=== PATIENT | female | born 1990 | race African-American/Black ===

== ENCOUNTER 2018-12-17 13:31 | Emergency (ER) | payer OTHER ==
[~2018-12-17] VITALS: Ht 160 cm; Wt 97.9 kg
[2018-12-17 13:34] VITALS: BP 124/80; PULSE 102; RESP 18; Ht 160 cm; Wt 97.9 kg
[2018-12-17] MEDS ORDERED: ACET-141 PO (14:54)
[2018-12-17] MEDS ORDERED: D-ME118S24 PO (14:54)
[2018-12-17] MEDS ORDERED: CEPH-443 PO (14:54)
[2018-12-17] MEDS ORDERED: CETI10CA PO (14:54)
[2018-12-17] MEDS ORDERED: HYDR28.334 TP (14:54)
--- NOTE | 2018-12-17 14:54 | ERD ---
ER Documentation Chief Complaint Chief Complaint right arm swelling since yesterday s/p insect bites ROS All systems reviewed and are negative except as per history of present illness. Medications Home Meds Active Scripts D-Methorphan Hb/P-Epd HCl/Bpm (Lvcghuubxn-Pwhzdelphtc-Kp Syr) 118 Ml Syrup, 5 ML PO Q4H PRN for COUGH for 10 Days, #1 BOTTLE Prov:RITA GIRARD DO 12/17/18 Cetirizine Hcl* (Zyrtec*) 10 Mg Capsule, 10 MG PO DAILY PRN for ITCHING, #30 TAB Prov:RITA GIRARD DO 12/17/18 Acetaminophen* (Acetaminophen*) 500 MG Extra Strength Tablet, 500 MG PO Q4H PRN for PAIN AND OR ELEVATED TEMP, #30 TAB Prov:RITA GIRARD DO 12/17/18 Hydrocortisone (Hydrocortisone Cr) 28.35 Gm Cr, 28.35 GM TP BID PRN for itch for 10 Days, #1 TUBE Prov:RITA GIRARD DO 12/17/18 Cephalexin* (Keflex*) 500 Mg Capsule, 500 MG PO TID for skin infection for 5 Days, #15 CAP Prov:RITA GIRARD DO 12/17/18 Physical Exam Vitals Vital Signs Date Temp Pulse Resp B/P (MAP) Pulse Ox O2 O2 Flow FiO2 Time Delivery Rate 12/17/18 97.8 102 18 124/80 98 13:34 (95) Physical Exam Const: No acute distress Head: Atraumatic Eyes: Normal Conjunctiva ENT: Normal External Ears, Nose and Mouth. Neck: Full range of motion. No meningismus. Resp: Clear to auscultation bilaterally Cardio: Regular rate and rhythm, no murmurs Abd: Soft, non tender, non distended. Normal bowel sounds Skin: No petechiae or rashes Back: No midline or flank tenderness Ext: No cyanosis, or edema Neur: Awake and alert Psych: Normal Mood and Affect Departure Diagnosis: Primary Impression: Cellulitis Site of cellulitis: extremity Site of cellulitis of extremity: upper extremity Laterality: right Qualified Codes: L03.113 - Cellulitis of right upper limb Additional Impression: Cough Condition: Fair Patient Instructions: Cellulitis, Preventing Common Respiratory Infections Additional Instructions: Call your primary care doctor TOMORROW for an appointment during the next 1-2 days.See the doctor sooner or return here if your condition worsens before your appointment time. RITA GIRARD DO Dec 17, 2018 14:54
== END 2018-12-17 15:25 | disposition home or self-care (01) ==
LOC: FTE 13:31
DX: L03.113 Cellulitis of right upper limb (principal); R05 Cough
CPT/HCPCS: 99283

== ENCOUNTER 2019-01-04 14:36 | Emergency (ER) | payer OTHER ==
[~2019-01-04] VITALS: Ht 160 cm; Wt 97.9 kg
[~2019-01-04 14:36] MED LIST: ACET-141 PO; CEPH-443 PO; CETI10CA PO; D-ME118S24 PO; HYDR28.334 TP
[2019-01-04 14:39] VITALS: BP 145/80; PULSE 104; RESP 16; Ht 160 cm; Wt 97.9 kg
--- NOTE | 2019-01-04 14:41 | EN ---
Date/Time of Note Date/Time of Note DATE: 01/04/19 TIME: 14:40 ER Progress Note [id number]-[id number]-old female with redness and swelling of right forearm left lower extremity after likely bug bite yesterday. No SIRS criteria. ED 2 appropriate for symptomatic treatment. GANESH PATRICIA MD Jan 04, 2019 14:41
--- NOTE | 2019-01-04 14:55 | ERD ---
ER Documentation Chief Complaint Chief Complaint multiple mosquito bites x1 day w/ itching/pain at sites HPI 28-year-old female presents with insect bite to the right forearm. She first no ticed it yesterday but today got larger more painful more red and more swollen. Benadryl but it did not really help. Said no lip or tongue swelling. ROS All systems reviewed and are negative except as per history of present illness. Medications Home Meds Active Scripts Cephalexin* (Keflex*) 500 Mg Capsule, 500 MG PO QID for 7 Days, CAP Prov:ISIDRO AMIN PA-C 01/04/19 D-Methorphan Hb/P-Epd HCl/Bpm (Uraeilveii-Qretczzqtuq-Ie Syr) 118 Ml Syrup, 5 ML PO Q4H PRN for COUGH for 10 Days, #1 BOTTLE Prov:RITA GIRARD DO 12/17/18 Cetirizine Hcl* (Zyrtec*) 10 Mg Capsule, 10 MG PO DAILY PRN for ITCHING, #30 TAB Prov:RITA GIRARD DO 12/17/18 Acetaminophen* (Acetaminophen*) 500 MG Extra Strength Tablet, 500 MG PO Q4H PRN for PAIN AND OR ELEVATED TEMP, #30 TAB Prov:RITA GIRARD DO 12/17/18 Hydrocortisone (Hydrocortisone Cr) 28.35 Gm Cr, 28.35 GM TP BID PRN for itch for 10 Days, #1 TUBE Prov:RITA GIRARD DO 12/17/18 Cephalexin* (Keflex*) 500 Mg Capsule, 500 MG PO TID for skin infection for 5 Days, #15 CAP Prov:RITA GIRARD DO 12/17/18 Allergies Allergies: Coded Allergies: morphine (Verified Allergy, Mild, 01/04/19) PMhx/Soc History of Surgery: Yes (appendix) Anesthesia Reaction: No Hx Psychiatric Problems: No Hx Alcohol Use: Yes (rarely) Hx Substance Use: Yes (marijuana) Hx Tobacco Use: No Smoking Status: Never smoker FmHx Family History: No diabetes Physical Exam Vitals Vital Signs Date Temp Pulse Resp B/P (MAP) Pulse Ox O2 O2 Flow FiO2 Time Delivery Rate 01/04/19 99.3 104 16 145/80 99 14:39 (101) Physical Exam Const: No acute distress Head: Atraumatic Eyes: Normal Conjunctiva ENT: Normal External Ears, Nose and Mouth. Neck: Full range of motion. No meningismus. Resp: Clear to auscultation bilaterally Cardio: Regular rate and rhythm, no murmurs Abd: Soft, non tender, non distended. Normal bowel sounds Skin: Right forearm has an area of erythema indurated skin warmth and tenderness to palpation approximately 4 cm in diameter, Results 24 hrs Current Medications Medications Dose Sig/Alonzo Start Time Status Last (Trade) Ordered Route PRN Stop Time Admin Dose Reason Admin 10 mg ONCE ONCE 01/04/19 Dexamethasone PO 15:00 (Decadron) 01/04/19 15:01 Procedures/MDM Patient has insect bite on right forearm. It is now red and swollen warm. I explained her that could be just a hypersensitivity reaction versus infected. She was given Decadron here and a [id number]-tgg-jud prescription for Keflex. Patient counseled regarding my diagnostic impression and care plan. Prior to discharge all questions answered. Pt agrees with treatment plan and understands strict return precautions. Pt is instructed to follow up with primary care provider within 24-48 hours. Precautionary instructions provided including instructions to return to the ER if not improving or for any worsening or changing symptoms or concerns. Departure Diagnosis: Primary Impression: Insect bite Condition: Stable Patient Instructions: Insect Bite Additional Instructions: Call your primary care doctor TOMORROW for an appointment during the next 1-2 days.See the doctor sooner or return here if your condition worsens before your appointment time. ISIDRO AMIN PA-C Jan 04, 2019 14:55
[2019-01-04] MEDS ORDERED: DEXAMETHASONE 10 MG/ML 1 ML INJ PO ONE (15:00)
== END 2019-01-04 15:10 | disposition home or self-care (01) ==
LOC: FTE 14:36
DX: S50.861A Insect bite (nonvenomous) of right forearm, initial encounter (principal); W57.XXXA Bitten or stung by nonvenomous insect and other nonvenomous arthropods, initial encounter; Y92.9 Unspecified place or not applicable
CPT/HCPCS: J1100; Z7502; 99283